=== PATIENT | female | born 1995 | race Caucasian/White ===

== ENCOUNTER 2020-11-09 19:00 | Inpatient (IN) | payer BC, SELFPAY ==
[2020-11-09] VITALS (23 sets, daily range): BP systolic 117–139; BP diastolic 62–86; PULSE 65–105; TEMP 36.9–37; O2SAT 95–100; BMI 32.4
[2020-11-09] MEDS: Lactated Ringers 1,000 ML 50 ML IV (19:45)
[2020-11-09 20:02] LABS: Absolute Lymphocyte Count 1.64 X10^3/uL (0.83-4.51); Absolute Neutrophil Count 6.9 X10^3/uL (2.0-7.7); Basophil# 0.01 X10^3/uL; Basophil% 0.1 % (0-1); Eosinophil# 0.04 X10^3/uL; Eosinophils% 0.4 % (0-5); Hematocrit 38.6 % (37-47); Hemoglobin 12.8 g/dL (12.0-15.0); Lymphocyte # 1.64 X10^3/ul (4.0); Mean Corp Hgb Conc 33.2 g/dL (32-36); Mean Corpuscular Hgb 29.5 pg (27.0-32.0); Mean Corpuscular Volume 88.9 fL (81-99); Mean Platelet Vol. 11.8 fl (6.2-12.0); Monocyte# 0.48 X10^3/uL; Monocyte% 5.3 % (0-10); NRBC Flagged by Analyzer 0 % (0-5); Neutrophil # 6.94 X10^3/uL (2.7-7.7); Platelet Count 243 K/mm3 (150-450); RBC Distribution Width CV 13.3 % (11.6-14.6); RBC Distribution Width SD 43.5 fl (35.1-43.9); Red Blood Count 4.34 M/mm3 (4.2-5.4); White Blood Count 9.1 K/mm3 (4.4-11.0)
[2020-11-09] MEDS: 0.9% Normal Saline Single 100 ML IV.SOLN. INTRA-UTER (21:15)
--- NOTE | 2020-11-09 21:16 | HP.PCM_ITS ---
- Problem List (1) 39 weeks gestation of Status: Acute (2) COVID-19 affecting in third trimester Status: Acute History Date of Admission: 11/09/20 Final JEAN: 11/16/20 Gestational age: 39 Weeks and 0 Days History of this : This is a 25 year-old, G [1], P [0], at 39.0 weeks gestational age for induction of labor due to recent COVID-19 infection. Patient denies any loss of fluid, vaginal bleeding or contractions. Positive movement. uncomplicated. Positive COVID-19 on 10/25/20. Allergies No Known Allergies Allergy (Verified 11/09/20 19:55) Home Medications: Home Medications Pnv No.95/Ferrous Fum/Folic AC [ Caplet] 1 ea PO 11/09/20 Smoking Status: Never smoker Number of Fetus(es): 1 NST - FHR Rate Baby A Baseline: 150 Variability:: Moderate Accelerations:: 15 x 15 Decelerations:: Variable NST Reactive:: Yes FHR Category:: Category II Uterine Activity:: Occasional contractions- mostly irritability History Past Pregnancies: Past Pregnancies Delivery Date Name GA/ Weeks Outcome Route Wt Infant Sex Labor Length Anesthesia Delivery Location Provider FOB Labs: A+ Rubella immune HB- neg HC- neg RPR- NR HIV- NR GBS- neg GCT elevated at 162, GTT had one elevated level at 208 COVID- 19 positive - 15 days ago Expected Infant Delivery Method: Spontaneous Vaginal Review of Systems Constitutional: Denies: Anorexia, Chills HEENT: Denies: Head Aches Cardiovascular: Denies: Chest Pain, Heaviness Respiratory: Denies: Cough, Shortness of Breath Gastrointestinal: Denies: Abdominal Pain Genitourinary: Denies: Dysuria Neurological: Denies: Headaches Physical Exam Vitals: Vital Signs Temp Pulse BP Pulse Ox 98.4 F 83 139/79 H 98 11/09/20 19:45 11/09/20 19:45 11/09/20 19:45 11/09/20 20:23 General: Alert, Oriented x3 HEENT: Atraumatic Cardiovascular: Regular rate Lungs: Normal air movement Abdomen: Soft, Non Tender, Gravid Neurological: Cranial nerves II-XII grossly intact MOLECULAR SPECTROSCOPIST: Normal external genitalia Estimated gestational size: Appropriate for gestational size Presentation: Cephalic Cervix Dilation (cm): 2 Station: -2 Effacement (%): 70 Assessment/Plan All Active Problems 39 weeks gestation of (Acute) COVID-19 affecting in third trimester (Acute) This is a 25 year-old, G [1], P [0], at 39 weeks gestational age for induction of labor for recent COVID-19 infection. Admit to labor and delivery Routine labs IV fluids per protocol GBS negative Mathis bulb placed without difficulty Start Pitocin IV once Category 1 tracing and increase per policy Dr. Sams notified and is collaborating physician
[2020-11-09] MEDS: Lactated Ringers 500 ML 999 ML IV (21:58)
[2020-11-09] MEDS: fentaNYL-bupivacaine (epidural) 100 ML BAG EPIDURAL (23:34)
[2020-11-10] VITALS (41 sets, daily range): BP systolic 107–141; BP diastolic 56–79; PULSE 61–118; RESP 18; TEMP 35.9–37.7; O2SAT 95–100
[2020-11-10] MEDS: Oxytocin 30 units/NS 500 ml 30 UNITS/500 ML IV.SOLN IV (01:19)
[2020-11-10] MEDS: Lactated Ringers 1,000 ML 200 ML IV ×4 (02:52→17:42)
[2020-11-10] MEDS: fentaNYL-bupivacaine (epidural) 100 ML BAG EPIDURAL ×4 (03:38→17:42)
--- NOTE | 2020-11-10 08:39 | PN.OBGYN_ITS ---
Patient Problems: Active and Suspected Problems 39 weeks gestation of (Acute) COVID-19 affecting in third trimester (Acute) Subjective: Patient seen at bedside. Comfortable with epidural. Denies any pain. Objective: CE- /-1 AROM for clear fluid Category 1 tracing - Physical Exam Vitals/I&O's: Vital Signs Temp Pulse BP Pulse Ox 98.0 F 65 116/70 100 11/10/20 08:14 11/10/20 08:11 11/10/20 08:11 11/10/20 08:11 Weight: 189 lb Body Mass Index (BMI) 32.4 Intake and Output for Last 24 Hours 11/08/20 11/09/20 11/10/20 23:59 23:59 23:59 Intake Total 610.83 / 610.83 2504.64 / 2504.64 Output Total 500 / 500 Balance 610.83 / 610.83 2003.64 / 2003.64 General: Alert, Oriented x3 HEENT: Atraumatic Lungs: Normal air movement Cardiovascular: Regular rate Abdomen: Soft, Non Tender, Gravid Skin: No rashes Neurological: Cranial nerves II-XII grossly intact Laboratory Results 11/09/20 19:45: WBC 9.1, RBC 4.34, Hgb 12.8, Hct 38.6, MCV 88.9, MCH 29.5, MCHC 33.2, RDW Std Deviation 43.5, RDW Coeff of Aditya 13.3, Plt Count 243, MPV 11.8, Immature Gran % (Auto) 0.200, Neut % (Auto) 76.0 H, Lymph % (Auto) 18.0 L, [place] % (Auto) 5.3, Eos % (Auto) 0.4, Baso % (Auto) 0.1, Absolute Neuts (auto) 6.9, Absolute Lymphs (auto) 1.64, Nucleated RBC % 0 11/09/20 19:45: Blood Type A POSITIVE, Antibody Screen NEGATIVE Current Medications Acetaminophen (Acetaminophen 500 Mg Tablet) 500 - 1,000 mg PO Q6H PRN PRN PRN Reason: Pain Score 1-3 Al Hydroxide/Mg Hydroxide (Mag Hydrox/Al Hydrox/Simeth 30 Ml Udc) 15 - 30 ml PO Q4H PRN PRN PRN Reason: INDIGESTION Citric Acid/Sodium Citrate (Sodium Citrate/Citric Acid 30 Ml Udc) 30 ml PO X1 PRN PRN Reason: Section Ephedrine Sulfate (Ephedrine Sulfate 50 Mg/Ml Ampul) 10 mg IV Q10M PRN PRN Reason: hypotension Ephedrine Sulfate (Ephedrine Sulfate 50 Mg/Ml Ampul) 10 mg IM Q30M PRN PRN Reason: hypotension Fentanyl Citrate (Fentanyl 100 Mcg/2 Ml Ampul) 25 - 50 mcg IV Q2H PRN PRN PRN Reason: Pain Score 4-10 Fentanyl/Bupivacaine/Sodium Chlor (Fentanyl-Bupivacaine (Epidural) 100 Ml Bag) 0 ml EPIDURAL UD BÁRBARA; Protocol Last Admin: 11/10/20 08:11 Dose: 100 ml Documented by: Lactated Ringer's () 500 mls @ 999 mls/hr IV .Q31M PRN PRN Reason: Epidural Last Infusion: 11/09/20 22:29 Dose: Infused Documented by: Lactated Ringer's () 500 mls @ 999 mls/hr IV .Q31M PRN PRN Reason: Corrective Measures Lactated Ringer's () 1,000 mls @ 50 mls/hr IV .Q20H BÁRBARA Last Admin: 11/10/20 08:11 Dose: 200 mls/hr Documented by: Oxytocin/Sodium Chloride () 30 units in 500 mls @ 2 mls/hr IV .Q250H BÁRBARA Last Infusion: 11/10/20 06:06 Dose: 14 mls/hr Documented by: Nalbuphine HCl (Nalbuphine 10 Mg/Ml Ampul) 5 mg IV Q3H PRN PRN PRN Reason: ITCHING Naloxone HCl (Naloxone 0.4 Mg/Ml Syringe) 0.02 mg IV Q1M PRN PRN Reason: RR <10 and pt unresponsive Ondansetron HCl (Ondansetron 4 Mg/2 Ml Vial) 4 mg IV Q4H PRN PRN PRN Reason: NAUSEA Prochlorperazine Edisylate (Prochlorperazine 10 Mg/2 Ml Vial) 10 mg IV Q6H PRN PRN PRN Reason: NAUSEA Sodium Chloride (0.9% Saline Lock 10 Ml Syringe) 10 - 40 ml IV X1 PRN PRN Reason: SALINE FLUSH Medical Necessity - Tobacco Use Smoking Status: Never smoker Assessment/Plan All Active Problems 39 weeks gestation of (Acute) COVID-19 affecting in third trimester (Acute) at 39.1 weeks gestation induction of labor NST reactive Category 1 tracing Pitocin IV at 14 mu/min AROM for clear fluid IUPC placed without difficulty Continue present management Anticipate
[2020-11-10] MEDS: Lactated Ringers 500 ML 999 ML IV ×2 (09:42→11:46)
--- NOTE | 2020-11-10 12:04 | PCM.PN.BLA ---
Progress Note Patient comfortable with epidural. Denies any pain or feeling contractions. Category 2 tracing with moderate variability- intermittent late and variable decelerations. Accelerations with scalp stimulation. Pitocin stopped and fluid bolus given CE - /0 FSE placed A/P at 39.1 weeks gestation for induction of labor Restart pitocin once Category [address] Sams notified of strip and plan of care Anticipate STROKE Vital Signs/Narrative: Vital Signs Temp Pulse BP Pulse Ox 11/10/20 11:16 83 122/69 H 11/10/20 11:15 98.2 F 99 11/10/20 10:05 97.7 F L 77 107/56 L 99 11/10/20 08:57 98.3 F 11/10/20 08:56 72 122/71 H 11/10/20 08:14 98.0 F 11/10/20 08:11 65 116/70 100
--- NOTE | 2020-11-10 13:57 | PCM.PN.BLA ---
Progress Note Patient resting comfortably on left side. Category 1 tracing NST reactive Pitocin at 4 mu/min Continue present management Anticipate updated. STROKE Vital Signs/Narrative: Vital Signs Temp Pulse BP Pulse Ox 11/10/20 13:41 97.9 F 71 125/73 H 100 11/10/20 12:05 98.0 F 78 114/69 99 11/10/20 11:16 83 122/69 H 11/10/20 11:15 98.2 F 99 11/10/20 10:05 97.7 F L 77 107/56 L 99
[2020-11-10] MEDS: Ondansetron 4 MG/2 ML Vial IV (14:45)
[2020-11-10] MEDS: 0.9% Saline Lock 10 ML Syringe IV ×2 (14:45→22:15)
--- NOTE | 2020-11-10 16:30 | PCM.PN.BLA ---
Progress Note Patient dilated to 10 cm and to begin pushing. Bedside labor support given Category 1 tracing NST reactive Anticipate STROKE Vital Signs/Narrative: Vital Signs Temp Pulse BP Pulse Ox 11/10/20 21:22 85 136/65 H 11/10/20 21:07 82 141/63 H 97 11/10/20 21:06 97.3 F L 11/10/20 20:02 98.3 F 11/10/20 19:18 81 136/61 H 97 11/10/20 18:45 98.5 F 83 134/74 H 98 11/10/20 17:52 98.0 F 97 11/10/20 17:51 117 H 117/62 95
[2020-11-10] MEDS: Oxytocin 30 units/NS 500 ml 30 UNITS/500 ML IV.SOLN 334 UNITS IV (19:57)
[2020-11-10] MEDS: Methylergonovine 0.2 MG/ML Ampul IM (20:00)
--- NOTE | 2020-11-10 21:04 | PCM.OPRPT ---
Problem List (1) 39 weeks gestation of Status: Acute (2) COVID-19 affecting in third trimester Status: Acute Report of Operation Date of Procedure: 11/10/20 Pre-Operative Diagnosis: Term gestation Post-Operative Diagnosis: Term gestation, live male infant Vaginal Delivery Maternal Presentation: Medically Indicated Induction at 39.1 weeks gestation for induction of labor for history of COVID-19 infection. Method of Induction: Pitocin, Mathis Bulb, Amniotomy Medical Reason for Induction: - - COVID-19 infection third trimester Amniotic Membrane Rupture Type: Artificial Rupture of Membrane time: 834 Amniotic Fluid Description: Clear Final JEAN: 11/16/20 Gestational age: 39 Weeks and 1 Days Date of Procedure: 11/10/20 Surgery/ Procedure Performed: Spontaneous Vaginal Delivery Type of Anesthesia: Epidural Description of Procedure: Patient progressed to complete dilation and pushed well for 3 hours. Slow decent. head delivered with maternal effort over intact perineum. Posterior shoulder followed by anterior shoulder and remainder of body. Vigorous male placed on maternal abdomen and attended to by nursing staff. Cord was clamped and cut by FOB after 2 minute delay. placed immediately skin to skin. Pitocin IV started for active management of the third stage of labor. Placenta delivered spontaneously and intact. 3 vessel cord. Uterus boggy and Methergine IM x1 given. Bilateral labial lacerations and vaginal laceration was repaired using 3-0 Vicryl in usual fashion. Vaginal sweep completed by myself. Bleeding was hemostatic. Uterus firm 1 below U. EBL 400 cc. Apgars 8/9 All instruments, labs and needles accounted for. Patient bonding with infant. Dr. Sams updated. Presentation: JOHN Placental Delivery Description: Spontaneous Placenta Disposition: [facility] Cord Vessel Description: 3 Vessels Cord Entanglement: None Estimated Blood Loss: 400 A gender: Male (1 minute): 8 (5 minute): 9 Episiotomy Description: None Laceration: Vaginal Extension/lac, 1st degree Medications given after delivery: IV Pitocin, IM Methergin
--- NOTE | 2020-11-10 23:33 | NURSING ---
Epidural catheter removed. Blue tip intact.
[2020-11-11] MEDS: Acetaminophen 500 MG Tablet 1000 MG PO ×2 (00:27→13:47)
[2020-11-11] MEDS: Dibucaine 30 GM Tube 1 APPLIC TOPICAL (01:32)
[2020-11-11] MEDS: Ibuprofen 600 MG Tablet PO ×3 (01:32→19:53)
[2020-11-11 03:30] VITALS: BP 104/53; PULSE 68; RESP 16; TEMP 36.1
[2020-11-11 08:34] VITALS: BP 112/67; PULSE 101; RESP 16; TEMP 36.6; O2SAT 98
--- NOTE | 2020-11-11 09:49 | PCM.PN.OB ---
Patient Problems: Active and Suspected Problems 39 weeks gestation of (Acute) COVID-19 affecting in third trimester (Acute) Subjective: Patient seen at bedside. Resting well. going well. Ambulating and voiding without difficulty. Anticipate discharge home tomorrow - Physical Exam Vitals/I&O's: Vital Signs Temp Pulse Resp BP Pulse Ox 97.8 F 101 H 16 112/67 98 11/11/20 08:34 11/11/20 08:34 11/11/20 08:34 11/11/20 08:34 11/11/20 08:34 Oxygen Delivery Method Room Air Weight: 189 lb Body Mass Index (BMI) 32.4 Intake and Output for Last 24 Hours 11/09/20 11/10/20 11/11/20 23:59 23:59 23:59 Intake Total 610.83 / 610.83 7673.74 / 7673.74 Output Total 3300 / 3300 1200 / 1200 Balance 610.83 / 610.83 4373.74 / 4373.74 -1200 / -1200 General: Alert, Oriented x3, Cooperative Neck: Supple Lungs: Normal air movement Cardiovascular: Regular rate Abdomen: Soft, Non Tender Extremities: No Calf Tenderness Current Medications Acetaminophen (Acetaminophen 500 Mg Tablet) 1,000 mg PO Q8H PRN PRN PRN Reason: Pain Score 1-3 Last Admin: 11/11/20 00:27 Dose: 1,000 mg Documented by: Bisacodyl (Bisacodyl 10 Mg Suppository) 10 mg RECTAL UD PRN PRN Reason: If no BM Dibucaine (Dibucaine 30 Gm Tube) 1 applic TOPICAL TID PRN PRN; Protocol PRN Reason: Discomfort Last Admin: 11/11/20 01:32 Dose: 1 applic Documented by: Hydrocortisone (Hydrocortisone 2.5% Crm) 1 applic TOPICAL TID PRN PRN; Protocol PRN Reason: Discomfort Ibuprofen (Ibuprofen 600 Mg Tablet) 600 mg PO Q6H PRN PRN PRN Reason: Pain Score 1-3 Last Admin: 11/11/20 08:46 Dose: 600 mg Documented by: Methylergonovine Maleate (Methylergonovine 0.2 Mg/Ml Ampul) 0.2 mg IM X1 PRN PRN Reason: Excess bleeding/uterine atony Last Admin: 11/10/20 20:00 Dose: 0.2 mg Documented by: Ondansetron HCl (Ondansetron 4 Mg/2 Ml Vial) 4 mg IV Q4H PRN PRN PRN Reason: Nausea Senna/Docusate Sodium (Senna/Docusate Sodium 1 Tablet) 1 - 2 tablet PO DAILY PRN PRN PRN Reason: Constipation Simethicone (Simethicone 80 Mg Tablet) 80 mg PO PCHS PRN PRN Reason: Indigestion/Stomach pain Sodium Chloride (0.9% Saline Lock 10 Ml Syringe) 5 - 15 ml IV UD PRN PRN Reason: SALINE FLUSH Last Admin: 11/10/20 22:15 Dose: 10 ml Documented by: Medical Necessity - Tobacco Use Smoking Status: Never smoker Assessment/Plan All Active Problems 39 weeks gestation of (Acute) COVID-19 affecting in third trimester (Acute) PPD 1 Routine care Pain control support Anticipate discharge home tomorrow
[2020-11-11 11:31] VITALS: BP 98/47; PULSE 83; RESP 16; TEMP 36.1; O2SAT 99
[2020-11-11 16:40] VITALS: BP 96/49; PULSE 80; RESP 16; TEMP 36.3
[2020-11-11 19:38] VITALS: BP 97/52; PULSE 89; RESP 16; TEMP 36.8
--- NOTE | 2020-11-11 21:28 | DCINST_ITS ---
Discharge Diet: No Restrictions Discharge Activity: Return to Normal Activity, May Take a Tub Bath - Sit in warm water only- no soaps or salts May resume sexual activity in: 6-8 weeks Weight Bearing Status: Weight bearing as tolerated Call your doctor if you observe: Fever of 101 or Higher, Inability to urinate, Inability to have a bowel movement, Using more than one pad per hour, Shortness of breath, Dizziness, Chest pain, Calf discomfort Additional Instructions: If you experience any of the following, contact your healthcare provider. * Bleeding that soaks a pad every hour for 2 hours * Fever 100.4 or higher * Unrelieved incision or abdominal pain * Swelling, redness, discharge or bleeding from your incision or episiotomy site * Your incision begins to separate * Problems urinating (including inability to urinate or burning while urinating). * Visual changes * Severe headache * Flu-like symptoms * Pain or redness in one of both of your breasts * Pain, warmth, tenderness or swelling in your legs, especially the calf area * Frequent nausea and vomiting * Symptoms of depression or anxiety If you experience any of the following, call 911 or go to the nearest Emergency Room. * Chest pain * Problems breathing * Seizure activity * Partial or complete paralysis of a body part, slurred speech, weakness or drooping of the face, or a sudden inability to walk or hold your balance Allergies/Adverse Reactions: Allergies No Known Allergies Allergy (Verified 11/09/20 19:55) Medications to take at Discharge Pnv No.95/Ferrous Fum/Folic AC [ Caplet] 1 ea PO 11/09/20 Please Follow Up With: Genia Malhotra CNM When: 2 weeks virtual visit, 6 weeks in office Primary Care Physician: Rossy Ng NP, INJECTION MOULDING MACHINE OPERATOR-C [Primary Care Provider] - Test Results: Test results from this visit will be discussed in further detail at your follow- up appointment, if applicable. Proposed Discharge Date: 11/11/20
--- NOTE | 2020-11-11 21:28 | PCM.DCVAG ---
Discharge Diet: No Restrictions Discharge Activity: Return to Normal Activity, May Take a Tub Bath - Sit in warm water only- no soaps or salts May resume sexual activity in: 6-8 weeks Weight Bearing Status: Weight bearing as tolerated Call your doctor if you observe: Fever of 101 or Higher, Inability to urinate, Inability to have a bowel movement, Using more than one pad per hour, Shortness of breath, Dizziness, Chest pain, Calf discomfort Additional Instructions: If you experience any of the following, contact your healthcare provider. Bleeding that soaks a pad every hour for 2 hours Fever 100.4 or higher Unrelieved incision or abdominal pain Swelling, redness, discharge or bleeding from your incision or episiotomy site Your incision begins to separate Problems urinating (including inability to urinate or burning while urinating). Visual changes Severe headache Flu-like symptoms Pain or redness in one of both of your breasts Pain, warmth, tenderness or swelling in your legs, especially the calf area Frequent nausea and vomiting Symptoms of depression or anxiety If you experience any of the following, call 911 or go to the nearest Emergency Room. Chest pain Problems breathing Seizure activity Partial or complete paralysis of a body part, slurred speech, weakness or drooping of the face, or a sudden inability to walk or hold your balance Allergies/Adverse Reactions: Allergies No Known Allergies Allergy (Verified 11/09/20 19:55) Medications to take at Discharge Pnv No.95/Ferrous Fum/Folic AC [ Caplet] 1 ea PO 11/09/20 Please Follow Up With: Genia Malhotra CNM When: 2 weeks virtual visit, 6 weeks in office Primary Care Physician: Rossy Ng NP, STEAM TRAIN DRIVER-C [Primary Care Provider] - Test Results: Test results from this visit will be discussed in further detail at your follow-up appointment, if applicable. Proposed Discharge Date: 11/11/20
--- NOTE | 2020-11-11 21:30 | PCM.PN.BLA ---
Progress Note Patient desires discharge home tonight at 24 hours. Denies pain. Ambulating and voiding without difficulty. without difficulty. Lochia decreased. Discharge orders placed with plan to follow up in office for post visit. STROKE Vital Signs/Narrative: Vital Signs Temp Pulse Resp BP 11/11/20 19:38 98.3 F 89 16 97/52 L
== END 2020-11-11 22:15 | disposition home or self-care (01) | DRG 806 ==
PROVIDERS: Admitting Provider Advanced Practice Midwife; PCP Nurse Practitioner Family; Referring Provider Advanced Practice Midwife; Visit Provider Advanced Practice Midwife
DX: O98.52 Other viral diseases complicating childbirth (principal); O71.4 Obstetric high vaginal laceration alone; Z37.0 Single live birth; O76 Abnormality in fetal heart rate and rhythm complicating labor and delivery; O70.0 First degree perineal laceration during delivery; Z3A.39 39 weeks gestation of pregnancy; Z86.19 Personal history of other infectious and parasitic diseases
CPT/HCPCS: 59025; 59050; 85025; 86850; 86900; 86901; 99218; J7120; A4216; G0378; J2405

== ENCOUNTER 2022-06-25 17:05 | Inpatient (IN) | payer BC, SELFPAY ==
[2022-06-25] VITALS (31 sets, daily range): BP systolic 95–128; BP diastolic 55–71; PULSE 67–101; TEMP 36.6–36.8; O2SAT 93–100; BMI 31.2
[2022-06-25 17:56] LABS: Absolute Lymphocyte Count 1.68 X10^3/uL (0.83-4.51); Absolute Neutrophil Count 6.5 X10^3/uL (2.0-7.7); Basophil# 0.01 X10^3/uL; Basophil% 0.1 % (0-1); Eosinophil# 0.02 X10^3/uL; Eosinophils% 0.2 % (0-5); Hematocrit 42.8 % (37-47); Hemoglobin 13.9 g/dL (12.0-15.0); Lymphocyte # 1.68 X10^3/ul (0.83-4.51); Lymphocyte % 19.4 % (19-41); Mean Corp Hgb Conc 32.5 g/dL (32-36); Mean Corpuscular Hgb 30.7 pg (27.0-32.0); Mean Corpuscular Volume 94.5 fL (81-99); Mean Platelet Vol. 11.4 fl (6.2-12.0); Monocyte# 0.41 X10^3/uL; Monocyte% 4.7 % (0-10); NRBC Flagged by Analyzer 0 % (0-5); Neutrophil # 6.48 X10^3/uL (2.7-7.7); Platelet Count 186 K/mm3 (150-450); RBC Distribution Width CV 13.1 % (11.6-14.6); RBC Distribution Width SD 45.4 fl (35.1-43.9); Red Blood Count 4.53 M/mm3 (4.2-5.4); White Blood Count 8.7 K/mm3 (4.4-11.0)
[2022-06-25] MEDS: Lactated Ringers 1,000 ML 50 ML IV (17:56)
[2022-06-25] MEDS: Oxytocin 30 units/NS 500 ml 30 UNITS/500 ML IV.SOLN IV (18:35)
--- NOTE | 2022-06-25 20:47 | PCM.HP.OB ---
HPI - General General Date of Admission: 06/25/22 Date of Service: 06/25/22 Chief Complaint: elective IOL HPI Narrative REBECCA LAWSON, is a 26 F who presents for an elective IOL. No regular ctx, vb, lof. Good FM. PFSH PFSH Home Medications vit no.95-ferrous fumarate 28 mg-folic acid 800 mcg tablet 1 ea PO Check with primary doctor 11/09/20 [History Last Taken 06/24/22] Allergy/AdvReac Type Severity Reaction Status Date / Time No Known Allergies Allergy Verified 11/09/20 19:55 Surgical History (Updated 06/25/22 @ 19:38 by Suma Moran) History of surgery Social History Smoking Status: Never smoker History Elective abortions Hx Para 1 Spontaneous abortions Hx # Term Pregnancies Ectopic pregnancies Hx # Pregnancies Multiple births # of living children NST FHR Rate Baby A FHR Category:: Category I Vital Signs Vital Signs Vital Signs: 06/25/22 17:18 06/25/22 17:18 06/25/22 18:34 Temperature Temperature Source Pulse Rate 89 Blood Pressure 122/58 H 113/58 L BP Systolic 122 113 BP Diastolic 58 58 Pulse Ox 06/25/22 18:34 06/25/22 19:27 06/25/22 19:27 Temperature Temperature Source Pulse Rate 72 91 Blood Pressure 109/61 BP Systolic 109 BP Diastolic 61 Pulse Ox 06/25/22 19:27 06/25/22 19:27 06/25/22 19:28 Temperature Temperature Source Temporal Pulse Rate 88 Blood Pressure BP Systolic BP Diastolic Pulse Ox 96 06/25/22 17:18 06/25/22 19:28 06/25/22 20:20 Temperature 97.8 F Temperature Source Pulse Rate Blood Pressure 104/57 L BP Systolic 104 BP Diastolic 57 Pulse Ox 98 06/25/22 20:20 06/25/22 20:20 06/25/22 20:20 Temperature Temperature Source Temporal Pulse Rate 92 Blood Pressure BP Systolic BP Diastolic Pulse Ox 98 06/25/22 20:20 Temperature 98.2 F Temperature Source Pulse Rate Blood Pressure BP Systolic BP Diastolic Pulse Ox Weight Weight: 182 lb Body Mass Index (BMI) 31.2 Labs Labs Labs: Blood Type A POSITIVE Antibody Screen NEGATIVE Hct 42.8 % (37-47) Hgb 13.9 g/dL (12.0-15.0) Rhogam given: No Assessment & Plan (1) 40 weeks gestation of : PLAN: Admit for elective IOL per patient request GBS neg AROM performed for clear fluid Pit gtt Epidural for pain control EFW expected to be < 4500 g and pelvis adequate. Anticipate vaginal delivery (2) Elective induction of labor planned: (3) Short interval between pregnancies affecting , antepartum:
[2022-06-25] MEDS: LACTATED RINGERS 500 ML 999 ML IV (21:37)
[2022-06-25] MEDS: fentaNYL-bupivacaine (epidural) 100 ML BAG EPIDURAL (22:55)
[2022-06-26] VITALS (24 sets, daily range): BP systolic 92–126; BP diastolic 52–70; PULSE 64–127; RESP 15–25; TEMP 36.1–36.8; O2SAT 98–100
[2022-06-26] MEDS: LACTATED RINGERS 500 ML 999 ML IV (00:40)
[2022-06-26] MEDS: Ondansetron 4 MG/2 ML Vial IV (00:49)
--- NOTE | 2022-06-26 01:20 | PCM.PN.BLA ---
Progress Note Called to assess FHT. At bedside. Pt in hands and knees. She is now comfortable with epidural. Assessment & Plan Assessment/Plan (1) 40 weeks gestation of : PLAN: - Nurses have initiated resuscitation measures with a fluid position, oxygen, pitocin has been turned off, and position changes - Cvx now 8/80/0 station. IUPC unable to be placed - FHT now 110-120 bpm/mod skylar/+accels/+occasional decel and difficult to trace ctx's on toco - Will restart pit when able and suspect Category 2 tracing was due to significant cervical change - Anticipate vaginal delivery (2) Elective induction of labor planned:
[2022-06-26] MEDS: Lactated Ringers 1,000 ML 200 ML IV (02:48)
[2022-06-26] MEDS: fentaNYL-bupivacaine (epidural) 100 ML BAG EPIDURAL (03:28)
--- NOTE | 2022-06-26 04:28 | PCM.PN.BLA ---
Progress Note At bedside to check on pt. Resting and comfortable with epidural. RN at bedside. Assessment & Plan Assessment/Plan (1) 40 weeks gestation of : PLAN: Cvx 9.5/80/0. Anterior cervix now swollen. Will give dose of Benadryl. FHT 115/mod skylar/+accels/+variable decels. Acceleration with scalp stim. On pit 2 mu/min and ctx pattern irregular. To continue to titrate pitocin. (2) Elective induction of labor planned:
[2022-06-26] MEDS: DiphenhydrAMINE 50 MG/ML Syringe 25 MG IV (04:30)
[2022-06-26] MEDS: Cefazolin 2 GM in 0.9% Normal Saline 100 ML IV (05:22)
--- NOTE | 2022-06-26 06:46 | PCM.PN.BLA ---
Progress Note Delayed note. RN called JOB and I immediately was present at bedside. FHR with 2 prolonged late decelerations followed by bradycardia. Patient was taken back to the OR. Cvx was reassessed at that time and 10/100/0. FHT with persistent prolonged decelerations to 80-90 bpm with recovery to 110-115 bpm. Decision was made to push. Patient pushed for 3 contractions with no change in descent and unable to perform vacuum assisted vaginal delivery given station. Persistent bradycardia now with pushing. Given that patient was remote from delivery and intolerance to labor and pushing, recommended section to patient. Discussed with patient and and she desired to proceed with a section.
--- NOTE | 2022-06-26 06:56 | OP.PCM_ITS ---
Problems Associated Problem List Diagnoses (1) Elective induction of labor planned: (2) 40 weeks gestation of : (3) intolerance to labor, delivered, current hospitalization: Report of Operation Date of Procedure: 06/27/22 Pre-Operative Diagnosis: 40 week gestation, elective IOL planned, intolerance to labor Post-Operative Diagnosis: As above Surgery/Procedure Performed:: Primary low transverse section with pfannenstiel skin incision Repair of serosal defect over posterior lower uterine segment/cervix Description of Surgical Findings:: Viable male in cephalic presentation. Normal-appearing placenta with a 3VC, and normal appearing bilateral adnexa. There was a 3x2 cm area over the left uterine fundus that bleeding, and it appeared to be decidual reaction. A 3 cm serosal defect was noted posteriorly in the lower uterine segment/cervix, with the cervix noted to be bulging through the serosal defect. The cervix was still intact. Surgeon: Esther Sams senior assistant manager: Sadie NAVA senior assistant manager: Kerry Mobley Type of Anesthesia: Epidural and General Special Medications: None Specimen's removed: Placenta Drains: Mathis Estimated Blood Loss (mL): 1400 Fluids Replaced: See anesthesia record Description of Procedure: Indications: The patient is a 26-year-old G2, P1 who presented at 40+ weeks of gestation for an elective induction of labor. History of 1 prior vaginal delivery. She presented at 4 cm dilation. She was started on Pitocin and an artificial rupture of membranes was performed. Resuscitative measures were used during the induction for a category 2 tracing. Pitocin had to be stopped for some period of time during the induction. Once pitocin was stopped there was a Category 1 tracing. Once the Pitocin was restarted, and the patient was having inadequate contractions, and late decelerations were noted with each contraction. The patient that had 2 prolonged late decelerations followed by bradycardia. At this point the patient was taken back to the operating room. She was noted to be completely dilated back in the operating room. She was set up to start pushing as the heart rate had recovered to baseline. She pushed with 3 contractions, and significant decelerations were noted with pushing. The baby was at 0 station, and a vacuum-assisted vaginal delivery was unable to be safely performed. The patient was remote from delivery. Given that the patient was remote from delivery and bradycardia with intolerance to labor, decision was made to proceed with a section. Procedure: Patient was taken back to the operating room and she was moved over to the operating table. heart tones were reassessed and back to baseline. The patient was checked and noted to be complete. The patient was prepped in yellowfin stirrups for pushing. The patient pushed with 3 contractions with no descent. With each contraction prolonged bradycardia was noted. Given fetus at 0 station, I was unable to perform a vacuum-assisted vaginal delivery. Discussed risk, benefits, alternatives to a section with the patient and her and they desired to proceed. The heart rate tones were back to baseline just prior to the section. The patient was then prepped and draped in the dorsal position with a leftward tilt in usual sterile fashion for a section. Upon testing, her epidural was noted to be inadequate. Anesthesia attempted to achieve adequate pain control with the epi dural, but this adequate anesthesia was not achieved using the epidural. The decision was made to proceed with general anesthesia given anesthesiologist was unable to achieve pain control with the epidural. Once general anesthesia was induced, a Pfannenstiel skin incision was made with a scalpel. This was carried down to the underlying layer fascia. The fascia was incised in the midline. The fascia was extended bluntly. The rectus muscles were in the midline. The peritoneum was entered bluntly. The peritoneal incision was extended bluntly. A bladder blade was inserted. A low transverse incision was made on the uterus with a scalpel. The incision was extended bluntly on the uterus. A nurse provided a hand from below to elevate the head. The head was flexed and elevated out of the pelvis, and brought to the hysterotomy. The head was delivered through the hysterotomy followed by the shoulders and body easily without any force or delay. Vigorous viable male was delivered through the hysterotomy. The cord was clamped and cut immediately. The was handed off to the waiting nursery staff. The placenta was removed with manual extraction. The uterus was cleared of all clot and debris. The uterus was exteriorized. The hysterotomy was closed in a 2 layer fashion. Using 1-0 Vicryl the hysterotomy was closed initially in a runni ng locked fashion. A second imbricating layer was performed. The hysterotomy was noted to be hemostatic. Bilateral adnexa were noted to be normal-appearing. Upon attempt to place uterus back into the abdomen red blood was noted posterior to the uterus. At this point wet laps were used to pack the bowel away. Bleeding was noted to be coming from the posterior lower uterine segment/cervix. There was a serosal defect noted posteriorly with the cervix bulging through the serosal defect. The cervix was intact. The nurses checked below and the patient was not having any vaginal bleeding. At this point Dr. Kerry Mobley was called for assistance. When she was present, 0 Vicryl was used to reapproximate the serosal defect over the cervix. Bleeding was then hemostatic once a serosal defect was repaired. There was a 3 x 2 cm area over the left uterine fundus where the serosa was swollen and bleeding. It appeared to be similar to a decidual reaction. The serosa was oversewn over this area to achieve hemostasis. Fibrillar was placed over both serosal defects as well as Victor M. The uterus was placed back into the abdomen. The hysterotomy was hemostatic. The peritoneum was closed with 3-0 Vicryl in a running fashion. At this point Dr. Mobley left the OR. The rectus muscles were examined and noted to be hemostatic. The fascia was closed with strata fix in a running fashion. The subcutaneous space was irrigated and made hemostatic with the Bovie cautery. Subcutaneous space was reapproximated with 3-0 Vicryl. The skin was closed with 4 Monocryl in a subcuticular fashion, and a dressing was placed. Instrument, sharp, sponge counts were correct x2 and the patient was taken to the recovery room in stable condition. [employer] Sadie NAVA assisted with draping the patient, and delivery of infant. She also assisted with closure of the hysterotomy, closure of fascia, subcutaneous space, and skin. Drapery Hemmer [employer] Dr. Kerry Mobley was present for closure of the serosal defect on the uterus, and oversewing the serosa over the decidual-like reaction at the fundus. She also assisted with closure of the peritoneum. Grafts/Implants Used: None Procedure Start Time: 05:21 Procedure Stop Time: 06:48 Complications None Admit VTE Documentation VTE Present on Admission: No VTE Mechan Device Prophylaxis: SCD's
[2022-06-26] MEDS: Oxytocin 30 units/NS 500 ml 30 UNITS/500 ML IV.SOLN 167 UNITS IV (07:15)
[2022-06-26] MEDS: Acetaminophen 500 MG Tablet 1000 MG PO ×3 (08:04→20:12)
[2022-06-26] MEDS: Ketorolac 30 MG/ML Syringe IV ×3 (08:04→20:12)
[2022-06-26] MEDS: Senna/Docusate Sodium 1 Tablet PO (10:20)
[2022-06-26] MEDS: Lactated Ringers 1,000 ML 100 ML IV (10:22)
[2022-06-26 13:34] LABS: Hematocrit 32.5 % (37-47); Hemoglobin 10.6 g/dL (12.0-15.0); Mean Corp Hgb Conc 32.6 g/dL (32-36); Mean Corpuscular Hgb 31.4 pg (27.0-32.0); Mean Corpuscular Volume 96.2 fL (81-99); Mean Platelet Vol. 11.7 fl (6.2-12.0); Platelet Count 223 K/mm3 (150-450); RBC Distribution Width CV 13.2 % (11.6-14.6); RBC Distribution Width SD 45.7 fl (35.1-43.9); Red Blood Count 3.38 M/mm3 (4.2-5.4); White Blood Count 12.1 K/mm3 (4.4-11.0)
[2022-06-26] MEDS: Cefazolin 1 GM/50 ML BAG IV ×2 (14:16→23:24)
[2022-06-27] VITALS (17 sets, daily range): BP systolic 96–128; BP diastolic 50–68; PULSE 92–133; RESP 16–18; TEMP 36.6–38.5; O2SAT 98–99
[2022-06-27] MEDS: Acetaminophen 500 MG Tablet 1000 MG PO ×4 (02:27→20:02)
[2022-06-27] MEDS: Ketorolac 30 MG/ML Syringe IV (02:28)
[2022-06-27 06:10] LABS: Hematocrit 26.3 % (37-47); Hemoglobin 8.5 g/dL (12.0-15.0); Mean Corp Hgb Conc 32.3 g/dL (32-36); Mean Corpuscular Hgb 31.1 pg (27.0-32.0); Mean Corpuscular Volume 96.3 fL (81-99); Mean Platelet Vol. 10.9 fl (6.2-12.0); Platelet Count 158 K/mm3 (150-450); RBC Distribution Width CV 13.2 % (11.6-14.6); RBC Distribution Width SD 46.3 fl (35.1-43.9); Red Blood Count 2.73 M/mm3 (4.2-5.4); White Blood Count 11.9 K/mm3 (4.4-11.0)
[2022-06-27] MEDS: Senna/Docusate Sodium 1 Tablet PO (08:27)
[2022-06-27] MEDS: Ibuprofen 600 MG Tablet PO ×3 (08:27→20:02)
--- NOTE | 2022-06-27 11:03 | PCM.PN.OB ---
Subjective Subjective Pt is doing well. Pain is well controlled. She is ambulating and voiding without difficulty. She denies lightheadedness, dizziness, chest pain, shortness of breath, leg pain. She is tolerating regular diet without nausea or vomiting. She is not passing flatus. Lochia is normal. She is breast-feeding without complaints. Objective Data Objective Data Vital Signs: Vital Signs Temp Pulse Resp BP Pulse Ox O2 Del Method 98.2 F 108 H 18 101/60 99 Room Air 06/27/22 08:00 06/27/22 08:36 06/27/22 08:00 06/27/22 08:33 06/27/22 08:36 06/27/22 08:00 Oxygen Delivery Method Room Air Weight: 182 lb Body Mass Index (BMI) 31.2 Intake & Output: Intake and Output for Last 24 Hours 06/25/22 06/26/22 06/27/22 23:59 23:59 23:59 Intake Total 693.97 / 693.97 3036.92 / 3036.92 50 / 50 Output Total 1400 / 1400 Balance 693.97 / 693.97 1636.92 / 1636.92 50 / 50 Lab / Micro Data Result Diagrams: 06/27/22 06:00 Labs: Laboratory Results - last 24 hr 06/26/22 13:05: WBC 12.1 H, RBC 3.38 L, Hgb 10.6 L, Hct 32.5 L, MCV 96.2, MCH 31.4, MCHC 32.6, RDW Std Deviation 45.7 H, RDW Coeff of Aditya 13.2, Plt Count 223, MPV 11.7 06/27/22 06:00: WBC 11.9 H, RBC 2.73 L, Hgb 8.5 L, Hct 26.3 L, MCV 96.3, MCH 31.1, MCHC 32.3, RDW Std Deviation 46.3 H, RDW Coeff of Aditya 13.2, Plt Count 158, MPV 10.9 Micro: Microbiology 06/25/22 17:40 Nasal Secretion SARS-CoV-2 Antigen (Rapid) - Final Physical Exam Const alert and no apparent distress General Appearance: comfortable HEENT normocephalic Resp normal respiratory effort GI soft to palpation GI Narrative: Minimal soft distension, ATTP, no rebounding, no guarding, no rigidity. Extremity normal to inspection Assessment & Plan (1) Delivery by section: PLAN: - Pt doing well. Reviewed surgery with patient. Dispo: Routine post op care and anticipate discharge tomorrow (2) Acute blood loss anemia: PLAN: - Equilibration from surgery. No symptoms of anemia currently. Abd is soft and ATTP. VSS. Repeat CBC in AM
[2022-06-27] MEDS: 0.9% Saline Lock 10 ML Syringe IV (15:19)
[2022-06-28] VITALS (11 sets, daily range): BP systolic 100–110; BP diastolic 55–68; PULSE 83–102; RESP 14–17; TEMP 36.4–36.7; O2SAT 98–100
[2022-06-28] MEDS: Ibuprofen 600 MG Tablet PO ×4 (02:01→20:27)
[2022-06-28] MEDS: Acetaminophen 500 MG Tablet 1000 MG PO ×4 (02:01→20:28)
[2022-06-28 05:21] LABS: Absolute Lymphocyte Count 1.15 X10^3/uL (0.83-4.51); Absolute Neutrophil Count 6.3 X10^3/uL (2.0-7.7); Basophil# 0.01 X10^3/uL; Basophil% 0.1 % (0-1); Eosinophil# 0.05 X10^3/uL; Eosinophils% 0.6 % (0-5); Hemoglobin 7.5 g/dL (12.0-15.0); Lymphocyte # 1.15 X10^3/ul (0.83-4.51); Lymphocyte % 14.5 % (19-41); Mean Corp Hgb Conc 32.6 g/dL (32-36); Mean Corpuscular Hgb 31.4 pg (27.0-32.0); Mean Corpuscular Volume 96.2 fL (81-99); Mean Platelet Vol. 11.7 fl (6.2-12.0); Monocyte# 0.38 X10^3/uL; Monocyte% 4.8 % (0-10); NRBC Flagged by Analyzer 0 % (0-5); Neutrophil # 6.32 X10^3/uL (2.7-7.7); Neutrophil % 79.6 % (47-70); POSITIVE COUNT YES; Platelet Count 111 K/mm3 (150-450); RBC Distribution Width CV 13.2 % (11.6-14.6); RBC Distribution Width SD 46.7 fl (35.1-43.9); Red Blood Count 2.39 M/mm3 (4.2-5.4); White Blood Count 7.9 K/mm3 (4.4-11.0)
[2022-06-28 05:24] LABS: Differential Indicated SCAN CRITERIA MET
[2022-06-28 05:48] LABS: Differential Comment SCANNED; Hypochromasia RARE; Platelet Estimate SLT DEC (ADEQ)
[2022-06-28] MEDS: Sodium Ferric Gluconat 250 MG in 0.9% Normal Saline 250 ML 135 MG IV (06:23)
[2022-06-28] MEDS: Senna/Docusate Sodium 1 Tablet PO (08:11)
--- NOTE | 2022-06-28 08:30 | NURSING ---
Holley Malhotra CNM called to update on patient's IV infiltrating. Charge nurse looked at patient's veins and they did not amazing due to previous sticks which caused bruising. This RN asked CNM if she wants us to start another IV to finish the rest of her Iron infusion or to just wait for her CBC results that are to be drawn at 1230. CNM states to wait till 1230 to see what her CBC shows.
--- NOTE | 2022-06-28 10:34 | PN.OBGYN_ITS ---
Subjective Subjective Patient seen at bedside. Ambulating in room. Feeling good. Last PM had temperature of 101.3 F x1. No further increased temperatures. Denies any headache, dizziness, SOB, or CP. Passing flatus. with minimal support. Desires discharge home. Objective Data Objective Data Vital Signs: Vital Signs Temp Pulse Resp BP Pulse Ox O2 Del Method 97.8 F 99 14 105/59 L 100 Room Air 06/28/22 08:21 06/28/22 08:21 06/28/22 08:21 06/28/22 08:21 06/28/22 08:21 06/28/22 08:21 Oxygen Delivery Method Room Air Weight: 182 lb Body Mass Index (BMI) 31.2 Intake & Output: Intake and Output for Last 24 Hours 06/26/22 06/27/22 06/28/22 23:59 23:59 23:59 Intake Total 3036.92 / 3036.92 300 / 300 229.5 / 229.5 Output Total 1400 / 1400 Balance 1636.92 / 1636.92 300 / 300 229.5 / 229.5 Lab / Micro Data Result Diagrams: 06/29/22 06:10 Labs: Laboratory Results - last 24 hr 06/28/22 05:13: WBC 7.9, RBC 2.39 L, Hgb 7.5 L, Hct 23.0 L, MCV 96.2, MCH 31.4, MCHC 32.6, RDW Std Deviation 46.7 H, RDW Coeff of Aditya 13.2, Plt Count 111 L, MPV 11.7, Immature Gran % (Auto) 0.400, Neut % (Auto) 79.6 H, Lymph % (Auto) 14.5 L, [place] % (Auto) 4.8, Eos % (Auto) 0.6, Baso % (Auto) 0.1, Absolute Neuts (auto) 6.3, Absolute Lymphs (auto) 1.15, Nucleated RBC % 0, Differential Comment SCANNED, Platelet Estimate SLT DEC, Hypochromasia RARE Micro: Microbiology 06/25/22 17:40 Nasal Secretion SARS-CoV-2 Antigen (Rapid) - Final ROS Eyes Eyes: Denies blurry vision, change in vision or spots in vision ENT HEENT: Denies dizziness or headache(s) Cardiovascular Cardiovascular: Denies abdominal pain, chest pain or dyspnea Respiratory/Chest Respiratory/Chest: Denies cough, dyspnea, shortness of breath at rest or shortness of breath with exertion Gastrointestinal Gastrointestinal: Denies abdominal pain, diarrhea or vomiting Genitourinary Genitourinary: Denies change in urinary stream, difficulty urinating or dysuria Musculoskeletal Musculoskeletal: Reports none Integumentary Integumentary: Denies rash Neurologic Neurologic: Denies dizziness, headache(s), memory loss or weakness Physical Exam Narrative Dressing is dry and intact Const alert and no apparent distress General Appearance: cooperative and comfortable Exam Limitations: no limitations HEENT normocephalic Eyes General Eye: normal appearance of both eyes Neck full ROM General: normal visual inspection Chest Chest: symmetrical chest wall rise Resp normal respiratory effort and normal air movement Effort and Inspection: symmetric chest movement Auscultation: clear to auscultation bilaterally Cardio regular rate and regular rhythm GI normal to inspection, nondistended, normoactive bowel sounds Back/Spine normal ROM Extremity full ROM and no calf tenderness General Extremity: normal exam except as noted Skin no rashes or lesions noted Neuro CN's II-XII intact bilaterally Psych mental status grossly normal Assessment & Plan (1) Acute blood loss anemia: (2) Delivery by section: (3) Care and examination of lactating mother: PLAN: Plan POD 2 Primary C/S Temperature 101.3 last PM- nothing further Hgb. 7.5 down from 8.5 yesterday- asymptomatic FE IV infusion x 1 Repeat CBC after infusion Pain controlled with oral medication D/C home tomorrow AM if remains afebrile Dr. Mayorag involved with plan of care.
[2022-06-28] MEDS: Ferrous Sulfate 325 MG Tablet PO ×2 (12:47→17:01)
[2022-06-28 13:35] LABS: Absolute Lymphocyte Count 0.88 X10^3/uL (0.83-4.51); Absolute Neutrophil Count 6.1 X10^3/uL (2.0-7.7); Basophil# 0.01 X10^3/uL; Basophil% 0.1 % (0-1); Eosinophil# 0.06 X10^3/uL; Eosinophils% 0.8 % (0-5); Hematocrit 24.5 % (37-47); Hemoglobin 7.9 g/dL (12.0-15.0); Lymphocyte # 0.88 X10^3/ul (0.83-4.51); Lymphocyte % 11.8 % (19-41); Mean Corp Hgb Conc 32.2 g/dL (32-36); Mean Corpuscular Hgb 31.2 pg (27.0-32.0); Mean Corpuscular Volume 96.8 fL (81-99); Mean Platelet Vol. 10.9 fl (6.2-12.0); Monocyte# 0.38 X10^3/uL; Monocyte% 5.1 % (0-10); NRBC Flagged by Analyzer 0 % (0-5); Neutrophil # 6.08 X10^3/uL (2.7-7.7); Neutrophil % 81.5 % (47-70); Platelet Count 160 K/mm3 (150-450); RBC Distribution Width CV 13.3 % (11.6-14.6); RBC Distribution Width SD 47.1 fl (35.1-43.9); Red Blood Count 2.53 M/mm3 (4.2-5.4); White Blood Count 7.5 K/mm3 (4.4-11.0)
[2022-06-29] VITALS (32 sets, daily range): BP systolic 100–128; BP diastolic 55–70; PULSE 67–90; RESP 14–17; TEMP 36.1–36.6; O2SAT 99–100
[2022-06-29] MEDS: Acetaminophen 500 MG Tablet 1000 MG PO ×3 (02:30→14:59)
[2022-06-29] MEDS: Ibuprofen 600 MG Tablet PO ×3 (02:30→14:59)
[2022-06-29 06:30] LABS: Absolute Lymphocyte Count 1.45 X10^3/uL (0.83-4.51); Absolute Neutrophil Count 4.6 X10^3/uL (2.0-7.7); Basophil# 0.01 X10^3/uL; Basophil% 0.1 % (0-1); Eosinophil# 0.15 X10^3/uL; Eosinophils% 2.2 % (0-5); Hematocrit 21.1 % (37-47); Hemoglobin 6.9 g/dL (12.0-15.0); Lymphocyte # 1.45 X10^3/ul (0.83-4.51); Lymphocyte % 21.7 % (19-41); Mean Corp Hgb Conc 32.7 g/dL (32-36); Mean Corpuscular Hgb 32.2 pg (27.0-32.0); Mean Corpuscular Volume 98.6 fL (81-99); Mean Platelet Vol. 11.1 fl (6.2-12.0); Monocyte# 0.42 X10^3/uL; Monocyte% 6.3 % (0-10); NRBC Flagged by Analyzer 0 % (0-5); Neutrophil # 4.64 X10^3/uL (2.7-7.7); Neutrophil % 69.4 % (47-70); Platelet Count 170 K/mm3 (150-450); RBC Distribution Width CV 13.2 % (11.6-14.6); RBC Distribution Width SD 48.1 fl (35.1-43.9); Red Blood Count 2.14 M/mm3 (4.2-5.4); White Blood Count 6.7 K/mm3 (4.4-11.0)
--- NOTE | 2022-06-29 07:11 | PN.OBGYN_ITS ---
Subjective Subjective Patient seen at bedside. Feeling good. Denies any dizziness, headache, SOB or CP. Ambulating and voiding without difficulty. with no support. Afebrile for 24 hours. HGB. decreased to 6.9. Objective Data Objective Data Vital Signs: Vital Signs Temp Pulse Resp BP Pulse Ox O2 Del Method 96.9 F L 86 14 105/68 100 Room Air 06/29/22 01:03 06/29/22 01:04 06/29/22 01:03 06/29/22 01:03 06/29/22 01:04 06/29/22 01:03 Oxygen Delivery Method Room Air Weight: 182 lb Body Mass Index (BMI) 31.2 Intake & Output: Intake and Output for Last 24 Hours 06/27/22 06/28/22 06/29/22 23:59 23:59 23:59 Intake Total 300 / 300 229.5 / 229.5 Balance 300 / 300 229.5 / 229.5 Lab / Micro Data Result Diagrams: 06/29/22 06:10 Labs: Laboratory Results - last 24 hr 06/28/22 13:25: WBC 7.5, RBC 2.53 L, Hgb 7.9 L, Hct 24.5 L, MCV 96.8, MCH 31.2, MCHC 32.2, RDW Std Deviation 47.1 H, RDW Coeff of Aditya 13.3, Plt Count 160, MPV 10.9, Immature Gran % (Auto) 0.700, Neut % (Auto) 81.5 H, Lymph % (Auto) 11.8 L, [place] % (Auto) 5.1, Eos % (Auto) 0.8, Baso % (Auto) 0.1, Absolute Neuts (auto) 6.1, Absolute Lymphs (auto) 0.88, Nucleated RBC % 0 06/29/22 06:10: WBC 6.7, RBC 2.14 L, Hgb 6.9 L, Hct 21.1 L, MCV 98.6, MCH 32.2 H , MCHC 32.7, RDW Std Deviation 48.1 H, RDW Coeff of Aditya 13.2, Plt Count 170, MPV 11.1, Immature Gran % (Auto) 0.300, Neut % (Auto) 69.4, Lymph % (Auto) 21.7, [place] % (Auto) 6.3, Eos % (Auto) 2.2, Baso % (Auto) 0.1, Absolute Neuts (auto) 4.6, Absolute Lymphs (auto) 1.45, Nucleated RBC % 0 Micro: Microbiology 06/25/22 17:40 Nasal Secretion SARS-CoV-2 Antigen (Rapid) - Final ROS Eyes Eyes: Denies blurry vision, change in vision or spots in vision ENT HEENT: Denies dizziness or headache(s) Cardiovascular Cardiovascular: Denies abdominal pain, chest pain or dyspnea Respiratory/Chest Respiratory/Chest: Denies cough, dyspnea, shortness of breath at rest or shortness of breath with exertion Gastrointestinal Gastrointestinal: Denies abdominal pain, diarrhea or vomiting Genitourinary Genitourinary: Denies change in urinary stream, difficulty urinating or dysuria Musculoskeletal Musculoskeletal: Reports none Integumentary Integumentary: Denies rash Neurologic Neurologic: Denies dizziness, headache(s), memory loss or weakness Physical Exam Narrative Dressing is dry and intact Const alert and no apparent distress General Appearance: cooperative and comfortable Exam Limitations: no limitations HEENT normocephalic Eyes General Eye: normal appearance of both eyes Neck full ROM General: normal visual inspection Chest Chest: symmetrical chest wall rise Resp normal respiratory effort and normal air movement Effort and Inspection: symmetric chest movement Auscultation: clear to auscultation bilaterally Cardio regular rate and regular rhythm GI normal to inspection, nondistended, normoactive bowel sounds Back/Spine normal ROM Extremity full ROM and no calf tenderness General Extremity: normal exam except as noted Skin no rashes or lesions noted Neuro CN's II-XII intact bilaterally Psych mental status grossly normal Assessment & Plan (1) Care and examination of lactating mother: (2) Delivery by section: (3) Acute blood loss anemia: PLAN: Plan POD 3 Primary C/S HGB 6.9- Transfuse 2 units PRBC's CBC 2 hours after infusion complete Pain control Anticipate discharge home later today Dr. Mayorga involved with plan of care
--- NOTE | 2022-06-29 07:31 | PCM.DC.SUM ---
Providers Date of Admission: 06/25/22 Primary Care Physician: WILFRID Alfred Reason For Visit: PRIMARY Diagnosis Discharge Diagnosis (1) Care and examination of lactating mother: Status: Acute Code(s): Z39.1 - Encounter for care and examination of lactating mother (2) Delivery by section: Status: Acute (3) Acute blood loss anemia: Status: Acute Code(s): D62 - Acute posthemorrhagic anemia Plan POD 3 Primary C/S HGB 6.9- Transfuse 2 units PRBC's CBC 2 hours after infusion complete Pain control Anticipate discharge home later today Dr. Mayorga involved with plan of care Medications at Discharge Home Medications vit no.95-ferrous fumarate 28 mg-folic acid 800 mcg tablet 1 ea PO Check with primary doctor 11/09/20 ferrous sulfate 325 mg (65 mg iron) tablet (FeroSul) 325 mg PO 1200,1700 #0 tabs 06/29/22 oxycodone 5 mg tablet 5 - 10 mg PO Q4H PRN PRN Pain Score 4-10 5 days #10 tabs 06/29/22 sennosides 8.6 mg-docusate sodium 50 mg tablet (Stool Softener-Stimulant Laxative) 1 - 2 tab PO DAILY #0 tabs 06/29/22 Hospital Course Operations section Procedures Blood transfusion Summary of Care Provided Hospital Course: Patient was a primary section and hospital course complicated by acute blood loss anemia. Physical Exam Narrative Dressing is dry and intact Const alert and no apparent distress General Appearance: cooperative and comfortable Exam Limitations: no limitations HEENT normocephalic Eyes General Eye: normal appearance of both eyes Neck full ROM General: normal visual inspection Chest Chest: symmetrical chest wall rise Resp normal respiratory effort and normal air movement Effort and Inspection: symmetric chest movement Auscultation: clear to auscultation bilaterally Cardio regular rate and regular rhythm GI normal to inspection, nondistended, normoactive bowel sounds Back/Spine normal ROM Extremity full ROM and no calf tenderness General Extremity: normal exam except as noted Skin no rashes or lesions noted Neuro CN's II-XII intact bilaterally Psych mental status grossly normal Weight / BMI Weight Weight: 182 lb Body Mass Index (BMI) 31.2 ABG / Lab / Microbiology Data Result Diagrams: 06/29/22 06:10 Laboratory: Laboratory Results - last 24 hr 06/28/22 13:25: WBC 7.5, RBC 2.53 L, Hgb 7.9 L, Hct 24.5 L, MCV 96.8, MCH 31.2, MCHC 32.2, RDW Std Deviation 47.1 H, RDW Coeff of Aditya 13.3, Plt Count 160, MPV 10.9, Immature Gran % (Auto) 0.700, Neut % (Auto) 81.5 H, Lymph % (Auto) 11.8 L, [place] % (Auto) 5.1, Eos % (Auto) 0.8, Baso % (Auto) 0.1, Absolute Neuts (auto) 6.1, Absolute Lymphs (auto) 0.88, Nucleated RBC % 0 06/29/22 06:10: WBC 6.7, RBC 2.14 L, Hgb 6.9 L, Hct 21.1 L, MCV 98.6, MCH 32.2 H, MCHC 32.7, RDW Std Deviation 48.1 H, RDW Coeff of Aditya 13.2, Plt Count 170, MPV 11.1, Immature Gran % (Auto) 0.300, Neut % (Auto) 69.4, Lymph % (Auto) 21.7, [place] % (Auto) 6.3, Eos % (Auto) 2.2, Baso % (Auto) 0.1, Absolute Neuts (auto) 4.6, Absolute Lymphs (auto) 1.45, Nucleated RBC % 0 Microbiology: Microbiology 06/25/22 17:40 Nasal Secretion SARS-CoV-2 Antigen (Rapid) - Final D/C Instructions Discharge Diet: No restrictions Discharge Activity: May Shower May resume sexual activity in: 6-8 weeks Weight Bearing Status: Weight bearing as tolerated Call your doctor if your incision/area has: Continuous Slow Oozing, Sudden Increased Bleeding, Increased Pain/ Swelling, Increased Redness, Foul Smelling Discharge and Swelling at the incision site Call your doctor if you observe: Fever of 101 or Higher, Inability to have a bowel movement, Shortness of breath, Dizziness, Chest pain, Calf discomfort and Uncontrolled pain Change Dressing in: leave in place till F/U Cleanse incision/area with: Soap & Water Please Follow Up With: Esther Sams DO When: 1 week in office for incision check Meaningful Use Info Meaningful Use Diagnoses (Choose all that apply): None applicable Discharge Plan Admission Admit Date/Time: 06/25/22 17:05 Primary Reason for Your Visit: Labor and Delivery Attending Provider: Esther Sams Primary Care Provider: Rossy Ng NP Instructions Additional Instructions / Restrictions: Follow up in office 1 week for incision check Discharge Orders/Prescriptions Prescriptions: New sennosides-docusate sodium [Stool Softener-Stimulant Laxat] 8.6-50 mg Tablet 1 - 2 tab PO DAILY Qty: 0 0RF oxycodone 5 mg Tablet 5 - 10 mg PO Q4H PRN PRN (Reason: Pain Score 4-10) 5 Days Qty: 10 0RF ferrous sulfate [FeroSul] 325 mg (65 mg iron) Tablet 325 mg PO 1200,1700 Qty: 0 0RF Continued PNV cmb#95-ferrous fumarate-FA 1 EACH tablet 1 ea PO Referrals / Follow Up: Rossy Ng NP, [employer] [Primary Care Provider] - Disposition Disposition (needs filled in before D/C Order can be placed): Home, Self Care
[2022-06-29] MEDS: 0.9% Normal Saline 1,000 ML 200 ML IV (09:50)
[2022-06-29] MEDS: Senna/Docusate Sodium 1 Tablet PO (12:43)
[2022-06-29] MEDS: Ferrous Sulfate 325 MG Tablet PO (12:43)
[2022-06-29 16:24] LABS: Hematocrit 32.2 % (37-47); Hemoglobin 10.5 g/dL (12.0-15.0); Mean Corp Hgb Conc 32.6 g/dL (32-36); Mean Corpuscular Hgb 30.9 pg (27.0-32.0); Mean Corpuscular Volume 94.7 fL (81-99); Mean Platelet Vol. 11.1 fl (6.2-12.0); Platelet Count 223 K/mm3 (150-450); RBC Distribution Width CV 13.8 % (11.6-14.6); RBC Distribution Width SD 47.9 fl (35.1-43.9)
--- NOTE | 2025-07-17 12:30 | NURSING ---
Chart reviewed for accuracy of documentation. Delivery Record adjusted to Section-NAJMA to match the Operative Record and physician documentation. Operative Record adjusted to Decision Time 0459 to match physician and documentation spec.
== END 2022-06-29 17:15 | disposition home or self-care (01) | DRG 787 ==
PROVIDERS: Advanced Practice Midwife; Admitting Provider Obstetrics & Gynecology; PCP Nurse Practitioner Family; Visit Provider Obstetrics & Gynecology
DX: O76 Abnormality in fetal heart rate and rhythm complicating labor and delivery (principal); D62 Acute posthemorrhagic anemia; O99.02 Anemia complicating childbirth; Z37.0 Single live birth; Z3A.40 40 weeks gestation of pregnancy
CPT/HCPCS: 59025; 59050; 85025; 85027; 86850; 86900; 86901; 86920; 86922; 87811; 99218; J7030; J7050; J7120; P9016; A4216; G0378; J2405; J2916